=== PATIENT | female | born 1980 | race Caucasian/White ===

== ENCOUNTER 2016-10-22 07:24 | Emergency (ER) | payer OTHER ==
[~2016-10-22] VITALS: Ht 152.4 cm; Wt 71.7 kg
[~2016-10-22 07:24] MED LIST: AMOXICILLIN500 M1 PO; Flexeril PO; LYRICA100 MG PO; LYRICA50 MG PO; MOTRIN800 MG PO; Maalox, Mylanta PO; Methadone HCl PO; NOHOMEMEDS; NORCO 5/3251 TABLET PO; Percocet 5/325,Endoc PO
[2016-10-22] MEDS ORDERED: LYRICA100 MG PO (07:44)
[2016-10-22] MEDS ORDERED: NAPROSYN500 MG PO (07:49)
[2016-10-22] MEDS ORDERED: ULTRAM50 MG PO (07:49)
[2016-10-22] MEDS ORDERED: PEN-VEE K,VEET500 MG PO (07:49)
[2016-10-22 08:05] VITALS: BP 158/97
== END 2016-10-22 08:05 | disposition home or self-care (01) ==
LOC: EME 07:24
PROC: 3E0T3BZ Introduction of Anesthetic Agent into Peripheral Nerves and Plexi, Percutaneous Approach (ICD-10-PCS; principal; 2016-10-22)
DX: K04.7 Periapical abscess without sinus (principal); K02.9 Dental caries, unspecified; K03.81 Cracked tooth; R51 Headache; F17.200 Nicotine dependence, unspecified, uncomplicated; R00.0 Tachycardia, unspecified
CPT/HCPCS: 99281; 99284

== ENCOUNTER 2016-11-23 11:24 | Emergency (ER) | payer OTHER ==
[~2016-11-23] VITALS: Ht 154.9 cm; Wt 72.8 kg
[~2016-11-23 11:24] MED LIST changes: +NAPROSYN500 MG PO; +PEN-VEE K,VEET500 MG PO; +ULTRAM50 MG PO
[2016-11-23] MEDS ORDERED: LIDODERM 5% P1 PATCH TD (13:37)
[2016-11-23] MEDS ORDERED: FLEXERIL10 MG PO (13:37)
[2016-11-23] MEDS ORDERED: PREDNISONE10 MG PO (13:37)
[2016-11-23] MEDS ORDERED: TRAMADOL HCL50 MG PO (13:37)
[2016-11-23 13:50] VITALS: BP 115/65
== END 2016-11-23 13:50 | disposition home or self-care (01) ==
LOC: EME 11:24
DX: M54.41 Lumbago with sciatica, right side (principal); M62.830 Muscle spasm of back; W10.9XXA Fall (on) (from) unspecified stairs and steps, initial encounter; F17.210 Nicotine dependence, cigarettes, uncomplicated
CPT/HCPCS: 99281; 99284; J7512